=== PATIENT | female | born 1990 | race Caucasian/White ===

== ENCOUNTER 2020-04-25 14:10 | Emergency (ER) | payer MEDICAID, SELFPAY ==
--- NOTE | ~2020-04-25 | XR_ITS ---
EXAMINATION: XR CHEST CLINICAL INFORMATION: High fever COMPARISON: CT abdomen and pelvis 10/17/2016 TECHNIQUE: Frontal view of the chest was obtained. FINDINGS: No significant abnormality is noted involving the heart, lungs, mediastinum, bony thorax or soft tissues. XR/XR chest 1V IMPRESSION: Unremarkable examination.
[2020-04-25 14:16] VITALS: BP 116/77; PULSE 145; RESP 20; TEMP 36.6; O2SAT 96; BMI 25.0
[2020-04-25 14:40] VITALS: TEMP 37.3
--- NOTE | 2020-04-25 14:45 | ED_ITS ---
HPI - General Adult General Chief complaint: Fever Stated complaint: FEVER Time Seen by Provider: 04/25/20 14:14 Source: patient Mode of arrival: ambulatory Limitations: no limitations History of Present Illness HPI narrative: Patient no significant past medical history with complaining of high-grade fever since yesterday body aches no sore throat no running nose no contact with COVID-19 no urinary complaints no cough no shortness of breath Onset (ago): day(s) (1) Related Data Previous Rx's Medication Instructions Recorded levofloxacin 500 mg PO DAILY 7 Days #7 tab 04/25/20 Allergies Allergy/AdvReac Type Severity Reaction Status Date / Time No Known Allergies Allergy Unverified 12/04/19 17:28 [No Known Allergies*] Review of Systems Review of Systems: Constitutional : No Weight loss, ++Fever, No Chills ENT/Mouth : No sore throat, No Rhinorrhea Eyes: No Eye Pain, No Swelling Cardiovascular : No Chest Pain, no palpitations Respiratory : No Cough, No Sputum, no shortness of breath Gastrointestinal : no Nausea, No Vomiting, No Diarrhea, No abdominal Pain, no black stools Genitourinary : No Dysuria, No Urinary Frequency Musculoskeletal : No joint pain, ++ Myalgias, No Joint Swelling Skin : No Skin Lesions, No rash Neuro : No Weakness, No Numbness, No Dizziness, No Headache Psych : No Anxiety/Panic, No Depression Heme/Lymph: No Bruising, No Lymphadenopathy Endocrine : No Polyuria, No Polydipsia All other systems reviewed and are negative PMFSH Past Medical History Medical History No known health problems Social History Social History Advance Directives: No Advance Directives Information Provided: No Physical Exam Vital Signs: Vital Signs: Last Vital Signs Temp 99.0 F 04/25/20 16:28 Pulse 100 04/25/20 16:28 Resp 20 04/25/20 16:28 BP 116/77 04/25/20 14:16 Pulse Ox 99 04/25/20 16:28 Body Mass Index 25.0 Appearance: Alert. Oriented X3. No acute distress. Eyes: Pupils equal, round and reactive to light. ENT: Pharynx normal. Neck: Normal inspection. Neck supple. CVS: Tachycardia, no murmur Respiratory: No respiratory distress. Breath sounds normal. Abdomen: Soft and nontender. Bowel sounds are present, no mass palpable, no CVA tenderness Skin: Skin warm and dry. Normal skin color. Normal skin turgor. Extremities: No lower extremity edema. Neuro: Oriented X 3. No motor deficit. No sensory deficit. Medical Decision Making MDM Narrative Medical decision making narrative: Patient with high fever with chills now complaining of strong odor in the urine urine showed infection COVID is negative chest x-ray negative will start her on Levaquin patient denies any nausea/vomiting no significant back pain Lab Data Lab results reviewed: Yes I reviewed the patient's lab results. Labs: Lab Results 04/25/20 04/25/20 Range/Units 15:01 15:32 Urine Color YELLOW Urine Appearance CLOUDY Urine pH 6.0 (5.0-8.0) Ur Specific [place] 1.020 (1.005-1.025) Urine Protein 2+ H (NEG-TRACE) MG/DL Urine Glucose (UA) NEG (NEG) MG/DL Urine Ketones 40 (NEG) MG/DL Urine Blood 3+ H (NEG) Urine Nitrite POS H (NEG) Ur Leukocyte Esterase 2+ H (NEG) Urine RBC 30-49 H (0) /HPF Urine WBC TNTC H (0-4) /HPF Ur Squamous Epith Cells 2+ /LPF Urine Bacteria 1+ /LPF Urine Test NEGATIVE (NEGATIVE) COVID-19 (BIGG) Negative (Negative) COVID-19 Clin Com See Note Discharge Plan Discharge Clinical Impression: UTI (urinary tract infection) Qualifiers: Urinary tract infection type: acute cystitis Hematuria presence: without hematuria Qualified Code(s): N30.00 - Acute cystitis without hematuria Patient Disposition: Home, Self-Care Instructions: Urinary Tract Infection in Women (ED) Additional Instructions: Drink plenty of fluids take antibiotics as prescribed. Tylenol/Motrin for fever Report to the ER if high-grade fever/vomiting/increased abdominal pain Prescriptions: New levofloxacin 500 mg tablet 500 mg PO DAILY 7 Days Qty: 7 RF: 0
[2020-04-25] MEDS: Acetaminophen 325 MG TABLET 650 MG PO (14:58)
[2020-04-25 15:24] LABS: COVID-19 Test Negative (Negative)
[2020-04-25 16:12] LABS: Glucose Urine UA NEG (NEG); Leukocyte Esterase Urine 2+ (NEG); Nitrite Urine POS (NEG); UACC Culture Trigger YES; Urine Blood 3+ (NEG); Urine Ketones 40 MG/DL (NEG); Urine Protein 2+ MG/DL (NEG-TRACE)
[2020-04-25 16:13] LABS: Appearance Urine CLOUDY; Color Urine YELLOW
[2020-04-25 16:20] LABS: Bacteria Urine 1+ /LPF; RBC Urine 30-49 /HPF (0); Squamous Epithelial Cell Urine 2+ /LPF; WBC Urine TNTC /HPF (0-4)
[2020-04-25 16:28] VITALS: PULSE 100; RESP 20; TEMP 37.2; O2SAT 99
[2020-04-25 16:36] LABS: UPreg QC Valid YES; Urine Pregnancy NEGATIVE (NEGATIVE)
[2020-04-25] MEDS: levoFLOXacin 500 MG TABLET PO (16:50)
== END 2020-04-25 18:23 | disposition home or self-care (01) ==
PROVIDERS: Emergency Provider Internal Medicine
DX: N30.00 Acute cystitis without hematuria (principal); Z20.822 Contact with and (suspected) exposure to COVID-19; R50.9 Fever, unspecified
CPT/HCPCS: 36415; 71045; 81001; 81003; 81025; 87086; 87088; 87186; 87635; 99283; 99284

== ENCOUNTER 2020-04-28 15:53 | Outpatient (REF) | payer MEDICAID, SELFPAY ==
--- NOTE | ~2020-04-28 | CT_ITS ---
EXAMINATION: CT ABDOMEN AND PELVIS WITHOUT CONTRAST CLINICAL INFORMATION: Hematuria and acute onset right flank pain. COMPARISON: CT abdomen and pelvis 10/17/2016. TECHNIQUE: Multidetector volumetric imaging was performed from the superior aspect of the liver through the pubic symphysis. Sagittal and coronal reformatted images were obtained on the technologist's workstation. This CT examination was performed using dose optimization techniques as appropriate, variously including the following: *Automated exposure control. *Adjustment of mA and/or kV according to patient size (this includes techniques or standardized protocols for targeted exams where dose is matched to indication/reason for exam; i.e. extremities or head). *Use of iterative reconstruction technique. DLP: 341 mGy-cm FINDINGS: LUNG BASES: The visualized lung bases are unremarkable. LIVER, GALLBLADDER, AND BILIARY TREE: The liver is normal in size, shape, and attenuation. No focal hepatic lesion or biliary ductal dilatation is present. The gallbladder is unremarkable with no evidence of radiopaque gallstones, gallbladder wall thickening, or obvious pericholecystic inflammatory changes. PANCREAS: Unremarkable. SPLEEN: Unremarkable. ADRENAL GLANDS: Unremarkable. KIDNEYS AND URETERS: The kidneys are normal in size, shape, and attenuation. A single tiny punctate renal calculus is present on each side with one larger 4 mm non-obstructing calculus in the left lower pole. The collecting system on the right is mildly full when compared to the left renal collecting system. The proximal right ureter appears slightly more dilated than the left but no radiopaque ureteral calculus is seen. Perhaps a tiny punctate stone had passed. At the time of the patient's prior study, 2 punctate stones were seen in the right kidney with only one seen on today's study. BLADDER: Unremarkable. GASTROINTESTINAL TRACT: The small and large bowel are unremarkable. The appendix is unremarkable. ABDOMINAL WALL: No significant hernia is appreciated. LYMPH NODES: Normal. VASCULAR: Unremarkable. PELVIC VISCERA: Unremarkable. OSSEOUS STRUCTURES: Unremarkable. CT/CT abdomen pelvis wo con IMPRESSION: Bilateral non-obstructing renal calculi. There is some mild fullness of the collecting system on the right. Previously, 2 calculi were noted in the right kidney whereas on today's study only one is seen. Perhaps the patient passed a right kidney stone which is no longer seen.
== END 2020-04-28 15:54 | disposition home or self-care (01) ==
LOC: HO.CT 15:53
PROVIDERS: PCP Internal Medicine Geriatric Medicine; Visit Provider Nurse Practitioner
DX: R10.9 Unspecified abdominal pain (principal)
CPT/HCPCS: 74176

== ENCOUNTER 2020-10-15 11:04 | Emergency (ER) | payer MEDICAID, SELFPAY | END 2020-10-15 11:20 | disposition left against medical advice (07) | PROVIDERS: Emergency Provider Emergency Medicine; PCP Internal Medicine Geriatric Medicine | DX: R79.89 Other specified abnormal findings of blood chemistry (principal) ==

== ENCOUNTER 2024-09-27 07:31 | Outpatient (REF) | payer MEDICAID, SELFPAY ==
--- OUTSIDE RECORDS SUMMARY | 2024-09-27 07:37 | XMS_ITS | Encounter Summary ---
Author Organization [employer] Address [address] [place] [address] Care Team Providers Care Endless Bed Drum Sander Name Role Phone Ivy Lopez DO Primary Care Provider + [phone] Reason for Visit * Reason Onset Date Comments Chart Prep 09/22/2024 Encounter Details Date Type Department Care Team (Late st Contact Info) Description 09/22/2024 Telephone [facility] [address] [place] [address] Ivy Lopez DO [address] [place] [address] Chart Prep Social History Tobacco Use Types Packs/Day Years Used Date Smoking Tobacco: Former Cigarettes Smokeless Tobacco: Never Comments Unknown Sex and Gender Information Value Date Recorded Sex Assigned at Female 01/16/2022 10:19 AM EDT Legal Sex Female 10:19 AM EDT Gender Identity Female 01/16/2022 10:19 AM EDT Sexual Orientation Choose not to disclose 2021 10:19 AM EDT documented as of this encounter Miscellaneous Notes * Telephone Encounter - Ele Santoro MA - 09/22/2024 8:51 AM EDT Chart Prep Labs: not applicable Images: not applicable Referrals: appointment pending Vaccines due: Covid, Hep B, and HPV Screenings: pap smear and LMP Overdue care gaps: SBIRT, SDOH, PHQ-9, LATESHA-7, Oral health screening, Disability screen, and Tobacco documented in this encounter Plan of Treatment Not on file documented as of this encounter Visit Diagnoses Not on filedocumented in this encounter Care Teams Endless Bed Drum Sander Relationship Specialty Start Date End Date Ivy Lopez DO [address] [place] [id number] PCP - General Family Medicine 07/08/24 documented as of this encounter
--- OUTSIDE RECORDS SUMMARY | 2024-09-27 07:37 | XMS_ITS | Clinical Summary ---
Author Organization [employer] [facility] ity Address [address] [place] [address] Care Team Providers Care Cage Unloader Name Role Phone Unavailable Primary Care Provider Unavailabl e Social History Tobacco Use Types Packs/Day Years Used Date Smoking Tobacco: Never Assessed Comments Unknown Sex and Gender Information Value Date Recorded Sex Assigned at Not on file Legal Sex Female 4:57 AM EST Gender Identity Not on file Sexual Orientation Not on file Plan of Treatment Health Maintenance Due Date Last Done Comments DTaP,Tdap,and Td Vaccines (1 - Tdap) 09/20/2011 Hepatitis B Vaccines (1 of 3 - 19+ 3-dose series) 09/20/2011 Cervical Cancer Screening: P ap Smear 2013 COVID-19 Vaccine ( - 2023-2 5 season) 2023 Influenza Vaccine (#1) 2024 HIB Vaccines Aged Out No longer eligi ble based on patient's age to complete this topic HPV Vaccines Aged Out No longer eligi ble based on patient's age to complete this topic Hepatitis A Vaccines Aged Out No long er eligible based on patient's age to complete this topic IPV Vaccines Aged Out No longer eligi ble based on patient's age to complete this topic MMR Vaccines Aged Out No longer eligi ble based on patient's age to complete this topic Meningococcal ACWY Vaccine Aged Out N o longer eligible based on patient's age to complete this topic Meningococcal B Vaccine Aged Out No l onger eligible based on patient's age to complete this topic Pneumococcal Vaccine: Pediat rics (0 to 5 Years) and At-Risk Patients (6 to 49 Years) Aged Out No longer eligible b ased on patient's age to complete this topic RSV Immunization Patients Un la nena 20 months Aged Out No longer eligible b ased on patient's age to complete this topic Varicella Vaccines Aged Out No longer eligible based on patient's age to complete this topic
[2024-09-27 08:07] LABS: Hematocrit 35.7 % (37.0-47.0); Hemoglobin 11.6 g/dl (12.0-16.0); Mean Corpuscular HGB Conc 32.5 g/dl (31.0-35.0); Mean Corpuscular Hemoglobin 28.4 pg (27.0-33.0); Mean Corpuscular Volume 87.3 fL (80.0-98.0); NRBC Abs Auto 0.000 X10*3/uL (0.0-0.012); NRBC Pct Auto 0.0 /100WBC (0.0-0.2); Platelet Count 381 X10*3/uL (160-400); Red Blood Count 4.09 X10*6/uL (4.20-5.50); White Blood Count 8.6 X10*3/uL (4.8-10.8)
[2024-09-27 08:14] LABS: Hemoglobin A1C 97.9106 umol/L; Total Hemoglobin (HGBA1C) 2947.9735 umol/L
[2024-09-27 08:38] LABS: Alanine Aminotransferase 25 U/L (0-31); Albumin Level 4.5 g/dL (3.5-5.0); Alkaline Phosphatase 69 U/L (39-117); Anion Gap 10 (12-20); Aspartate Amino Transferase 23 U/L (5-31); Blood Urea Nitrogen 14 mg/dL (9-16); Calcium 9.5 mg/dL (8.4-10.2); Carbon Dioxide 24 mmol/L (22-29); Chloride 110 mmol/L (96-108); Cholesterol 208 mg/dL (<200); Estimated Glomerular Filt Rate > 60; HDL Cholesterol 52 mg/dL (>40); Potassium 3.9 mmol/L (3.3-5.1); Sodium 140 mmol/L (135-145); Total Protein 8.1 g/dL (6.5-8.0); Triglycerides 105 mg/dL (<150)
[2024-09-27 09:12] LABS: HBS Num1 1.16 mIU/mL (0-7.99); HBc Num1 0.09 S/CO (0.00-0.79); HBsAGNum1 0.41 S/CO (0.00-0.99); HIV Num 1 0.05 S/CO (0.00-0.99); Hepatitis B Surface Antigen Negative (Negative); ~HepC Num1 0.18 S/CO (0.00-0.79); ~Hepatitis B Surface Antibody NONREACTIVE (Nonreactive); ~Hepatitis C Antibody Nonreactive (Nonreactive)
[2024-09-27 09:14] LABS: Free T4 (Free Thyroxine) 0.97 ng/dL (0.71-1.85); Thyroid Stimulating Hormone 1.70 uIU/mL (0.32-4.0)
[2024-10-01 09:22] LABS: Rubeola IgG (Measles) 15.00 AU/mL
[2024-10-03 04:10] LABS: ~Hepatitis A Antibody IgG 0.37 S/CO (0.00-0.99)
== END 2024-09-27 07:32 | disposition home or self-care (01) ==
LOC: HO.LAB 07:31
PROVIDERS: PCP Family Medicine; Visit Provider Family Medicine
DX: Z00.00 Encounter for general adult medical examination without abnormal findings (principal); E28.2 Polycystic ovarian syndrome; L30.1 Dyshidrosis [pompholyx]; Z87.442 Personal history of urinary calculi; R00.2 Palpitations; Z68.28 Body mass index [BMI] 28.0-28.9, adult
CPT/HCPCS: 36415; 80048; 80061; 80076; 82306; 83036; 84439; 84443; 85027; 86592; 86704; 86706; 86708; 86735; 86762; 86765; 86787; 86803; 87340; 87389

== ENCOUNTER 2024-09-29 10:37 | Outpatient (REF) | payer MEDICAID, SELFPAY ==
--- OUTSIDE RECORDS SUMMARY | 2024-09-29 11:28 | XMS_ITS | Encounter Summary ---
Author Organization [employer] Address [address] [place] [address] Care Team Providers Care Beach Expert Name Role Phone Ivy oLpez DO Primary Care Provider + [phone] Encounter Details Date Type Department Care Team (Latest Contact Info) Description 09/26/2024 Travel Social History Tobacco Use Types Packs/Day Years Used Date Smoking Tobacco: Former Cigarettes Smokeless Tobacco: Never Depression Answer Date Recorded Patient Health Questionnaire-9 Score 0 09/26/2024 Patient Health Questionnaire-9 Score 0 09/26/2024 Last PHQ-9: Questionnaire Data Not on file 0 09/26/2024 Housing Stability Answer Date Recorded What is your housing situation today? I have xena jesse 09/26/[address] you li ve. Do you have problems with any of the following? None of the above 09/26/2024 Food Insecurity Answer Date Recorded Within the past 12 months, y ou worried that your food would run out before you got money to buy more: Never True 09/26/2024 Within the past 12 months,th e food you bought just didn't last and you didn't have enough money to get more: Never True 01/2025 Transportation Answer Date Recorded In the past 12 months, has l ack of transportation kept you from medical appts, meetings, work or from getting things needed for daily living? No 09/26/2024 Utilities Answer Date Recorded In the past 12 months, has t he electric, gas, oil or water company threatened to shut off services in your home? No 09/26/2024 Depression Answer Date Recorded Patient Health Questionnaire-2 Score 0 09/26/2024 Internet Access Answer Date Recorded Internet Access Q1 Yes 09/26/2024 Internet Access Q2 Not on file 09/26/2024 Comments No Sex and Gender Information Value Date Recorded Sex Assigned at Female 01/16/2022 10:19 AM EDT Legal Sex Female 10:19 AM EDT Gender Identity Female 01/16/2022 10:19 AM EDT Sexual Orientation Choose not to disclose 2021 10:19 AM EDT documented as of this encounter Functional Status * Over the past 2 weeks, how often have you been bothered by any of the following problems? Question Answer Date of Assessment Author Patient Health Questionnaire-2 Score 0 09/26/2024 10:20 AM EDT Nimo Salinas MA * Little interest or pleasure in doing things Answer Date of Assessment Author Not at all 09/26/2024 10:20 AM EDT Nimo Quezada MA * Feeling down, depressed, or hopeless Answer Date of Assessment Author Not at all 09/26/2024 10:20 AM EDT Nimo Quezada MA * Trouble falling or staying asleep, or sleeping too much Answer Date of Assessment Author Not at all 09/26/2024 10:20 AM EDT Nimo Quezada MA * Feeling tired or having little energy Answer Date of Assessment Author Not at all 09/26/2024 10:20 AM EDT Nimo Quezada MA * Poor appetite or overeating Answer Date of Assessment Author Not at all 09/26/2024 10:20 AM EDT Nimo Quezada MA * Feeling bad about yourself - or that you are a failure or have let yourself or your family down Answer Date of Assessment Author Not at all 09/26/2024 10:20 AM EDT Nimo Quezada MA * Trouble concentrating on things, such as reading the newspaper or watching television Answer Date of Assessment Author Not at all 09/26/2024 10:20 AM EDT Nimo Quezada MA * Moving or speaking so slowly that other people could have noticed? Or the opposite - being so fidgety or restless that you have been moving around a lot more than usual. Answer Date of Assessment Author Not at all 09/26/2024 10:20 AM EDT Nimo Quezada MA * Thoughts that you would be better off or hurting yourself in some way Answer Date of Assessment Author Not at all 09/26/2024 10:20 AM EDT Nimo Quezada MA * Patient Health Questionnaire-9 Score Answer Date of Assessment Author 0 09/26/2024 10:20 AM EDT Nimo Quezada MA * Over the last 2 weeks, how often have you been bothered by any of the following problems? Question Answer Date of Assessment Author Feeling nervous, anxious, or on edge 1 09/26/2024 10:20 AM EDT Nimo Toledo MA Not being able to stop or control worrying 0 09/26/2024 10:20 AM EDT Nimo Toledo MA Worrying too much about different things 0 09/26/2024 10:20 AM EDT Nimo Toledo MA Trouble relaxing 0 09/26/2024 10:20 AM EDT Nimo Toledo MA Being so restless that it is hard to sit still 0 09/26/2024 10:20 AM EDT Nimo Toledo MA Becoming easily annoyed or irritable 0 09/26/2024 10:20 AM EDT Nimo Toledo MA Feeling afraid as if something awful might happen 0 09/26/2024 10:20 AM EDT Nimo Antunez MA LATESHA-7 Total Score 1 09/26/2024 10:20 AM EDT Nimo Toledo MA documented as of this encounter Plan of Treatment Not on file documented as of this encounter Visit Diagnoses Not on filedocumented in this encounter Additional Health Concerns Assessment Noted Time PHQ-9 Depression Total Score: 0 09/27/19 25 10:20 AM EDT documented as of this encounter Care Teams Beach Expert Relationship Specialty Start Date End Date Ivy Lopez DO [address] [place] [id number] PCP - General Family Medicine 07/08/24 documented as of this encounter
--- OUTSIDE RECORDS SUMMARY | 2024-09-29 11:28 | XMS_ITS | Clinical Summary ---
Author Organization [employer] [facility] ity Address [address] [place] [address] Care Team Providers Care Commission Specialist Name Role Phone Unavailable Primary Care Provider [...]
[2024-10-02 06:53] LABS: TS Negative Control Passed; TS Panel A 0; TS Panel B 0; TS Positive Control Passed; TSpotTB Negative (Negative)
== END 2024-09-29 10:38 | disposition home or self-care (01) ==
LOC: HO.LAB 10:37
PROVIDERS: PCP Family Medicine; Visit Provider Family Medicine
DX: Z00.00 Encounter for general adult medical examination without abnormal findings (principal); E28.2 Polycystic ovarian syndrome; L30.1 Dyshidrosis [pompholyx]; Z87.442 Personal history of urinary calculi; R00.2 Palpitations; Z68.28 Body mass index [BMI] 28.0-28.9, adult
CPT/HCPCS: 36415; 86481

== ENCOUNTER → 2024-10-31 08:50 | Outpatient (REF) | payer MEDICAID, SELFPAY ==
--- NOTE | 2024-10-31 08:58 | HM_ITS ---
* Total monitoring time 2 days. * Underlying rhythm is sinus with an average rate of 82/Min. * No significant supraventricular or ventricular ectopy. * No sustained arrhythmias. * No significant pauses or high-grade AV blocks. * No patient markers or diary events. MTDD
--- NOTE | 2024-10-31 09:00 | CA_ITS ---
Transthoracic Echocardiogram Patient (Last, First, Middle): Ani Quintanilla Imalay Gender: Female Date of : 1990 Age: 34 Procedure Date: 10/31/2024 Procedure Type: Transthoracic Echocardiogram Location: OP Height: 165.1 cm Weight: 78.47 kg BSA: 1.86 m2 Heart Rate: 72 bpm BP: 112 / 72 mmHg Toppiece Chopper: TO Referring MD: Ivy Lopez DO Symptoms: PALPITATIONS Study Quality: Adequate ECG Rhythm: Sinus Conclusions: - Normal left ventricular size, thickness, systolic function, and wall motion. The visually estimated ejection fraction is between 55-60%. Diastolic function is normal for age. - Normal right ventricular cavity size and systolic function. Findings Left Ventricle Normal left ventricular size, thickness, systolic function, and wall motion. The visually estimated ejection fraction is between 55-60%. Diastolic function is normal for age. Right Ventricle Normal right ventricular cavity size and systolic function. Atria The left atrium is normal in size. There is no evidence of interatrial shunt by color Doppler. The right atrium is normal in size. Aortic Valve Normal aortic valve structure and function. There is no aortic valve stenosis. There is no aortic valve regurgitation. Mitral Valve Normal mitral valve structure and function. There is no mitral valve regurgitation. There is no mitral valve stenosis. Pulmonic Valve The pulmonic valve is normal. There is no pulmonic valve regurgitation. Tricuspid Valve Normal tricuspid valve structure. There is no tricuspid valve regurgitation. Tricuspid regurgitation envelope is inadequate for calculation of right ventricular systolic pressure. Normal right atrial pressure. Great Vessels All visible segments of the aorta are normal in size. The visualized portions of the pulmonary artery and branches are normal. Venous The inferior vena cava is normal in size and collapses greater than 50% with inspiration. Pericardium/Pleural There is no evidence of pericardial effusion. Prior Study Comparison No prior study available for comparison. Measurements 2D Linear Measurements IVSd: 0.76 0.6-0.9/0.6-1.0 cm LVIDd: 4.70 3.9-5.3/4.2-5.9 cm LVIDd Index: 2.53 2.4-3.2/2.2-3.1 cm/m2 LVIDs: 2.83 2.0-3.6 cm LVPWd: 0.60 0.7-1.1 cm LA Diam: 3.30 2.7-3.8/3.0-4.0 cm LAIDs Index: 1.77 1.5-2.3 cm/m2 LV Mass: 123.81 67-162/88-224 g LV Mass Index: 66.57 43-95/49-115 g/m2 LVOT Diam: 2.00 3.0+(-)1.3 cm 2D Systolic Function EF 4C: 61.50 >55% EF 2C: 60.80 >55% EF BiP: 61.10 >55% Mitral Valve MV Pk E: 0.57 MV PK A: 0.51 MV Decel Time: 188.00 E/A: 1.10 E'Lateral: 9.03 E'Medial: 8.05 E/E' Med: 7.00 E/E' Lat: 6.30 PHT: 55.00 MVA PHT: 4.00 Decel [place]: 3.01 Aortic Valve AoV Pk Fernando: 1.41 AoV Mn Fernando: 0.97 AoV VTI: 0.28 AoV Pk Grad: 8.00 Aov Mn Grad: 4.00 [place] Cont.VTI: 2.66 LVOT LVOT Pk Fernando: 1.20 LVOT Mn Fernando: 0.88 LVOT VTI: 0.24 LVOT Pk Grad: 6.00 LVOT Mn Grad: 3.00 LVOT Diam: 2.00 LVOT Area: 3.14 Diastolic Function MV Pk E: 0.57 MV Pk A: 0.51 E/A: 1.10 E'Medial: 8.05 E/E' Med: 7.00 E' Laterial: 9.03 E/E' Lat: 6.30 Right Ventricle TAPSE (mm): 20.80 TVS' Fernando: 13.50 Tricuspid Valve RA Press: 3.00 Great Vessels Aorta Sinus of Valsalva: 3.06 2.0-3.5 cm Ao Asc: 2.70 2.1-3.4 cm Updated in Other Vendor System with Status of Final Shahzad Noriega MD electronically signed on 11/02/2024 1:58:47 PM with status of Final
--- OUTSIDE RECORDS SUMMARY | 2024-10-31 09:07 | XMS_ITS | Clinical Summary ---
Author Organization [facility] ity Address [address] [place] [address] Care Team Providers Care Supervisor Type Bar And Segment Name Role Phone Unavailable Primary Care Provider [...] Vaccine ( - 2023-2 5 season) 2023 Depression Screening 03/19/2024 Influenza Vaccine (#1) 2024 HIB Vaccines Aged [...]
--- OUTSIDE RECORDS SUMMARY | 2024-10-31 09:07 | XMS_ITS | Clinical Summary ---
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 Do not crush, chew, or split. 60 tablet 3 5 09/27/19 26 Active cholecalciferol (Vitamin D-3) 50 MCG (1999 UT) capsule Take 1 capsule (50 mcg) by mouth Once per day. 90 capsule 3 5 Active Active Problems Problem Noted Date Diagnosed Date BMI 28.0-28.9,adult 09/26/2024 Dyshidrotic eczema 09/08/2024 PCOS (polycystic ovarian syndrome) 05/29/2024 History of nephrolithiasis 05/29/2024 Encounters Date Type Department Care Team Description 10/07/2024 Telephone [facility] [address] [place] [phone] Ivy Lopez DO 09/26/2024 10:30 AM EDT Office Visit [facility] [address] [place] [phone] Ivy Lopez DO Routine history and physical examination of adult (Primary Dx); PCOS (polycystic ovarian syndrome); Dermatitis; History of nephrolithiasis; Palpitations; Diminished night vision; BMI 28.0-28.9,adult 09/26/2024 Travel 09/22/2024 Telephone [facility] [address] [place] [address] Ivy Lopez DO Chart Prep 09/17/2024 Patient Outreach [facility] [address] [place] [address] Ivy Lopez, Pre-visit Planning ((Unable to reach for PVP screening, LVM) to be completed in office ) 09/08/2024 3:40 PM EDT Office Visit [facility] [address] [place] [address] Name, MD Darin Dyshidrotic eczema (Primary Dx) from Last 3 Months Immunizations Immunization Administration Dates Next Due Influenza injectable quadriv alent IIV4 with preservative 12/06/2016 Pfizer Covid-19 Vaccine 12+ 10/25/2020, Tdap 12/06/2016 Family History Medical History Relation Name Comments Hypertension Father Heart disease Father's Sister Diabetes Maternal Grandmother Diabetes Mother Hypertension Mother Diabetes Paternal Grandmother Relation Name Status Comments Father Father's Sister Maternal Grandmother Mother Paternal Grandmother Social History Tobacco Use Types Packs/Day Years Used Date Smoking Tobacco: Former Cigarettes Smokeless Tobacco: Never Tobacco Cessation:Counseling Given: Not Answered Depression Answer Date Recorded Patient Health Questionnaire-9 Score 0 09/26/2024 Patient Health Questionnaire-9 Score 0 09/26/2024 Last PHQ-9: Questionnaire Data Not on file 0 09/26/2024 Housing Stability Answer Date Recorded What is your housing situation today? I have xena molina 09/26/[address] you li [...] not to disclose 2021 10:19 AM EDT Last Filed Vital Signs Vital Sign Reading Time Taken Comments Blood Pressure 120/80 09/26/2024 10:13 AM EDT Pulse 86 09/26/2024 10:13 AM EDT Temperature 36.6 C (97.9 F) 09/26/2024 10:13 AM EDT Respiratory Rate 18 09/26/2024 10:13 AM EDT Oxygen Saturation 98% 09/08/2024 2:40 PM EDT Inhaled Oxygen Concentration - - Weight 78.7 kg (173 lb 6.4 oz) 09/26/2024 10:13 AM EDT Height 165.1 cm (5' 5 ) 09/26/2024 10:13 AM EDT Body Mass Index 28.86 09/26/2024 10:13 AM EDT Plan of Treatment Upcoming Encounters Date Type Department Care Team (Late st Contact Info) Description 01/09/2025 10:30 AM EDT Office Visit [facility] [address] [place] [address] Kelsi Ruiz, OD [address] [place] [phone] Health Maintenance Due Date Last Done Comments Family Planning (PISQ) 09/20/2007 HPV Vaccines (1 - 3-dose series) 09/20/2007 Hepatitis B Vaccines (1 of 3 - 19+ 3-dose series) 09/20/2011 Cervical Cancer Screening 02/24/2023 HPV/Cotest 02/24/2023 Pap Smear 02/24/2023 02/25/2020 COVID-19 Vaccine (3 - 2023-2 5 season) 2023 10/25/2020, 10/04/2020 Influenza Vaccine (#1) 2024 12/06/2016 Alcohol/Substance Use Screening 09/26/2025 09/26/2024 Depression Screening 09/26/2025 09/26/2024, 09/26/2024 Disability Screening 09/26/2025 09/26/2024 SDOH Screening 09/26/2025 09/26/2024 Tobacco Screening 09/30/2025 09/30/2024 DTaP/Tdap/Td Vaccines (2 - T d or Tdap) 12/06/2026 12/06/2016 Zoster Vaccines (1 of 2) 2042 RSV Patients and Patients Aged 60 years or older (1 - 1-dose 75+ series) 09/20/2067 HIV Screening Completed 09/27/2024, 04/28/2020 Hepatitis C Screening Completed 09/27/2024 , 04/28/2020 HIB Vaccines Aged Out No longer eligi [...] patient's age to complete this topic Meningococcal Vaccine Aged Out No blaire loren eligible based on patient's age to complete this topic Pneumococcal Vaccine: Pediatrics (0 to 5 Years) and At-Risk Patients (6 to 49) Years Aged Out No longer eligible b ased on patient's age to complete this topic RSV under 20 months Aged Out No longe r eligible based on patient's age to complete this topic Rotavirus Vaccines Aged Out No longer eligible based on patient's age to complete this topic Procedures Procedure Name Priority Date/Time Associated Diagnosis Comments T-SPOT(R).TB Routine 09/29/2024 10:47 AM EDT Routine history and physical examination of adult PCOS (polycystic ovarian syndrome) Dermatitis History of nephrolithiasis Palpitations BMI 28.0-28.9,adult MEASLES, MUMPS, AND RUBELLA (MMR) AB (IGG) PANEL, IMMUNE STATUS Routine 09/27/2024 7:59 AM EDT Routine history and physical examination of adult VARICELLA ZOSTER ANTIBODY, IGG Routine 09/27/2024 7:59 AM EDT Routine history and physical examination of adult HEPATITIS A ANTIBODY, TOTAL Routine 09/27/2024 7:59 AM EDT Routine history and physical examination of adult PCOS (polycystic ovarian syndrome) Dermatitis History of nephrolithiasis Palpitations BMI 28.0-28.9,adult HEPATITIS B CORE AB TOTAL Routine 09/27/2024 7:59 AM EDT Routine history and physical examination of adult PCOS (polycystic ovarian syndrome) Dermatitis History of nephrolithiasis Palpitations BMI 28.0-28.9,adult HEPATITIS B SURFACE ANTIBODY, QUALITATIVE Routine 09/27/2024 7:59 AM EDT Routine history and physical examination of adult PCOS (polycystic ovarian syndrome) Dermatitis History of nephrolithiasis Palpitations BMI 28.0-28.9,adult RPR (MONITOR) W/REFL TITER Routine 09/27/2024 7:59 AM EDT Routine history and physical examination of adult PCOS (polycystic ovarian syndrome) Dermatitis History of nephrolithiasis Palpitations BMI 28.0-28.9,adult HEPATITIS C AB W/REFL TO HCV RNA, QN, PCR Routine 09/27/2024 7:59 AM EDT Routine history and physical examination of adult PCOS (polycystic ovarian syndrome) Dermatitis History of nephrolithiasis Palpitations BMI 28.0-28.9,adult HIV 1/2 ANTIGEN/ANTIBODY, FOURTH GENERATION W/RFL Routine 09/27/2024 7:59 AM EDT Routine history and physical examination of adult PCOS (polycystic ovarian syndrome) Dermatitis History of nephrolithiasis Palpitations BMI 28.0-28.9,adult HEPATITIS B SURFACE ANTIGEN, EIA Routine 09/27/2024 7:59 AM EDT Routine history and physical examination of adult PCOS (polycystic ovarian syndrome) Dermatitis History of nephrolithiasis Palpitations BMI 28.0-28.9,adult BASIC METABOLIC PANEL Routine 09/27/2024 7:59 AM EDT Routine history and physical examination of adult PCOS (polycystic ovarian syndrome) Dermatitis History of nephrolithiasis Palpitations BMI 28.0-28.9,adult CBC Routine 09/27/2024 7:59 AM EDT Routine history and physical examination of adult PCOS (polycystic ovarian syndrome) Dermatitis History of nephrolithiasis Palpitations BMI 28.0-28.9,adult HEMOGLOBIN A1C Routine 09/27/2024 7:59 AM EDT Routine history and physical examination of adult PCOS (polycystic ovarian syndrome) Dermatitis History of nephrolithiasis Palpitations BMI 28.0-28.9,adult HEPATIC FUNCTION PANEL Routine 09/27/2024 7:59 AM EDT Routine history and physical examination of adult PCOS (polycystic ovarian syndrome) Dermatitis History of nephrolithiasis Palpitations BMI 28.0-28.9,adult VITAMIN D,25-OH,TOTAL,IA Routine 09/27/2024 7:59 AM EDT Routine history and physical examination of adult PCOS (polycystic ovarian syndrome) Dermatitis History of nephrolithiasis Palpitations BMI 28.0-28.9,adult TSH Routine 09/27/2024 7:59 AM EDT Routine history and physical examination of adult PCOS (polycystic ovarian syndrome) Dermatitis History of nephrolithiasis Palpitations BMI 28.0-28.9,adult LIPID PANEL, STANDARD Routine 09/27/2024 7:59 AM EDT Routine history and physical examination of adult PCOS (polycystic ovarian syndrome) Dermatitis History of nephrolithiasis Palpitations BMI 28.0-28.9,adult T4, FREE Routine 09/27/2024 7:59 AM EDT Routine history and physical examination of adult PCOS (polycystic ovarian syndrome) Dermatitis History of nephrolithiasis Palpitations BMI 28.0-28.9,adult THINPREP PAP Routine 02/25/2020 3:20 PM EST from Last 3 Months or Most Recently Relevant to Health Maintenance Results * T-SPOT??.TB (09/29/2024 10:47 AM EDT) Pathologist [facility] T Spot TB Negative Negative [facility] Comment:A negative test resu lt does not exclude the possibilityof exposure to or infection with Mycobacteriumtuberculosis (M. tuberculosis). Patients with recentexposure to TB infected individuals exhibiting anegative T-SPOT.TB result should be considered forretesting within 6 weeks or if other relevant clinicalsymptoms indicate. Results from T-SPOT.TB testing mustbe used in conjunction with each individual'sepidemiological history, current medical status,and results of other diagnostic evaluations.The T-SPOT.TB test is qualitative and results arereported as positive, borderline, or negative, giventhat the test controls perform as expected. In linewith the Centers for Disease Control and Prevention's2010 recommendation to report quantitative measurementsalongside the qualitative result, the laboratoryprovides spot counts for informational purposes only.The T-SPOT.TB test should not be interpreted as aquantitative test. TS PANEL A 0 [facility] TS PANEL B 0 [facility] Negative Control Passed [facility] Positive Control Passed [facility] Comment:For additional infor matgloria, please refer tohttp://education.[employer]/faq/AAC440(This link is being provided for informational/educational purposes only.)THIS TEST WAS PERFORMED AT:[employer] [id number] [place] [phone] HARTLEY MD,PHD 09/29/2024 10:4 7 AM EDT 09/29/2024 10:47 AM EDT us Ivy Lopez DO LAB BLOOD ORDERABLES Final R esult [facility] [address] [place] [phone] * (ABNORMAL) Vitamin D, 25-Hydroxy, Total, Immunoassay (09/27/2024 7:59 AM EDT) Vitamin D 25-OH Total 22.2(L) >30 ng/mL [facility] Comment: Health Based Reference Values*< 20 ng/mL Rtacytcmf32-69 ng/mL Insufficient> 30 ng/mL Sufficient*Yury WEINSTEIN. N Engl J Med. 2007;357:266-280There is no well-established upper level of normal vitamin Dlevels. Some laboratories use 50 ng/mL as an upper limit ofnormal. However, toxicity is patient-dependent and may occurat any level. Careful correlation with the patient'spresentation is necessary and, if there is concern forvitamin D toxicity, treatment should be consideredirrespective of the serum level.Care must be taken in interpreting Vitamin D results fromdifferent laboratories and methodologies. Published datademonstrated that results from patients undergoinghemodialysis may show a negative bias when tested withvarious automated 25-OH vitamin D assays when compared toLC-MS/MS.When testing samples from patients whose predominant form ofVitamin D is Vitamin D2, such as patients receiving VitaminD2 supplementation, results that are subtherapeutic shouldbe confirmed with another method such as LC-MS/MS. Blood Venous blood specimen / Unknown 09/27/2024 7:59 AM EDT 09/27/2024 7:59 AM EDT us Ivy Lopez DO LAB BLOOD ORDERABLES Final R esult [facility] [address] [place] [phone] * (ABNORMAL) Measles, Mumps, and Rubella (MMR) Antibodies??(IgG) Panel, Immune Status (09/27/2024 7:59 AM EDT) Pathologist [facility] Mumps Virus IgG Antibody <9.00(A) AU/mL [facility] Comment:AU/mL Interpretation ------- <9.00 Not consistent with immunity9.00-10.99 Equivocal>10.99 Consistent with immunityThe presence of mumps IgG antibody suggests immunizationor past or current infection with mumps virus. Rubella IgG Antibody <0.90(A) Index [facility] Comment:Index Interpretation ----- <0.90 Not consistent with immunity 0.90-0.99 Equivocal > or = 1.00 Consistent with immunityThe presence of rubella IgG antibody suggestsimmunization or past or current infection withrubella virus.THIS TEST WAS PERFORMED AT:D[facility] [place] [phone] GARCES MD Rubeola IgG (Measles) 15.00(A) AU/mL [facility] Comment:AU/mL Interpretation ----- <13.50 Not consistent with ulllpnko30.50-16.49 Equivocal>16.49 Consistent with immunityThe presence of measles IgG suggests immunization orpast or current infection with measles virus.For additional information, please refer tohttp://education.[employer]/faq/VAW803(This link is being provided for informational/educational purposes only.) Blood Venous blood specimen / Unknown 09/27/2024 7:59 AM EDT 09/27/2024 7:59 AM EDT Ivy Lopez DO LAB BLOOD ORDERABLES Final R esult [facility] [address] [place] [phone] * Hepatitis C Antibody with Reflex to HCV, RNA, Quantitative, Real-Time PCR (09/27/2024 7:59 AM EDT) Hepatitis C Antibody Nonreactive Nonreactive [facility] Comment:Antibodies to HCV no t detected; does not exclude early acuteHCV infection. Blood Venous blood specimen / Unknown 09/27/2024 7:59 AM EDT 09/27/2024 7:59 AM EDT Ivy Jurcsak DO LAB BLOOD ORDERABLES Final R esult Performing Organization Address City/[facility]/ZIP Co de Phone Number [facility] [address] [place] [phone] * Hepatitis A Antibody, Total (09/27/2024 7:59 AM EDT) Hepatitis A Antibody IgG Nonreactive Nonreactive [facility] Blood Venous blood specimen / Unknown 09/27/2024 7:59 AM EDT 09/27/2024 7:59 AM EDT us Ivy Lopez DO LAB BLOOD ORDERABLES Final R esult Performing Organization Address [facility] Co de Phone Number [facility] [address] [place] [phone] * Hepatitis B surface antigen, EIA (09/27/2024 7:59 AM EDT) Hepatitis B Surface Ag Negative Negative [facility] Blood Venous blood specimen / Unknown 09/27/2024 7:59 AM EDT 09/27/2024 7:59 AM EDT us Ivy Lopez DO LAB BLOOD ORDERABLES Final R esult Performing Organization Address [facility] Co de Phone Number [facility] [address] [place] [phone] * Hepatitis B Core Antibody, Total (09/27/2024 7:59 AM EDT) Hepatitis B Core Antibody Nonreactive Nonreactive [facility] Blood Venous blood specimen / Unknown 09/27/2024 7:59 AM EDT 09/27/2024 7:59 AM EDT us Ivy Lopez DO LAB BLOOD ORDERABLES Final R esult Performing Organization Address City/[facility]/ZIP Co de Phone Number [facility] [address] [place] [phone] * RPR (Monitor) with Reflex to??Titer (09/27/2024 7:59 AM EDT) RPR (Monitor) w/Refl Titer NON-REACTI VE NON-REACT ERNIE [facility] Comment:THIS TEST WAS PERFOR MED AT:D.[employer] [place] [phone] GARCES MD Rapid Plasma Reagin Ab Titer TNP [facility] Blood Venous blood specimen / Unknown 09/27/2024 7:59 AM EDT 09/27/2024 7:59 AM EDT us Ivy Lopez DO LAB BLOOD ORDERABLES Final R esult [facility] [address] [place] [phone] * HIV-1/2 Antigen and Antibodies, Fourth Generation, with Reflexes (09/27/2024 7:59 AM EDT) HIV AB/AG Nonreactive Nonreactive [facility] Comment:HIV-1 p24 Ag and/or HIV-1/HIV-2 Ab not detected.A test result that is nonreactive does not exclude thepossibility of exposure to or infection with HIV-1 and/orHIV-2. Nonreactive results in this assay for individualswith prior exposure to HIV-1 and/or HIV-2 may be due toantigen and antibody levels that are below the limit ofdetection of this assay.The [employer] HIV Ag/Ab Combo assay result andsupplemental assay results should be interpreted inconjunction with the patient's clinical presentation,history and other laboratory results. If the results areinconsistent with clinical evidence, additional testing issuggested to confirm the result. Blood Venous blood specimen / Unknown 09/27/2024 7:59 AM EDT 09/27/2024 7:59 AM EDT us Ivy Lopez DO LAB BLOOD ORDERABLES Final R esult Performing Organization Address City/[facility]/ZIP Co de Phone Number [facility] [address] [place] [phone] * Hepatitis B Surface Antibody, Qualitative (09/27/2024 7:59 AM EDT) [facility] ~Hepatitis B Surface Antibody NONREACTIVE Nonreactive [facility] Comment:Nonreactive: < 8.00 mIU/mL Blood Venous blood specimen / Unknown 09/27/2024 7:59 AM EDT 09/27/2024 7:59 AM EDT Ivy Jessica [employer] LAB BLOOD ORDERABLES Final R esult Performing Organization Address [facility]/ZIP Co de Phone Number [facility] [address] [place] [phone] * (ABNORMAL) CBC (09/27/2024 7:59 AM EDT) [facility] White Blood Count 8.6 4.8 - 10.8 X10*3/uL [facility] Red Blood Count 4.09(L) 4.20 - 5.50 X10*6/uL [facility] Hemoglobin 11.6(L) 12.0 - 16.0 g/dl [facility] Hematocrit 35.7(L) 37.0 - 47.0 % [facility] Mean Corpuscular Volume 87.3 80.0 - 98.0 fL [facility] Mean Corpuscular Hemoglobin 28.4 27.0 - 33.0 pg [facility] Mean Corpuscular HGB Conc 32.5 31.0 - 35.0 g/dl [facility] Red Cell Distribution Width 12.6 11.0 - 16.0 % [facility] Platelet Count 381 160 - 400 X10*3/uL [facility] Mean Platelet Volume 9.6 9.4 - 12.3 fL [facility] NRBC Pct Auto 0.0 0.0 - 0.2 /100WBC [facility] NRBC Abs Auto 0.000 0.0 - 0.012 X10*3/uL [facility] Blood Venous blood specimen / Unknown 09/27/2024 7:59 AM EDT 09/27/2024 7:59 AM EDT Ivy Lopez LAB BLOOD ORDERABLES Final R esult Performing Organization Address [facility] Co de Phone Number [facility] [address] [place] [phone] * (ABNORMAL) Varicella zoster antibody, IgG (09/27/2024 7:59 AM EDT) Varicella IgG Antibody <1.00(A) S/CO [facility] Comment:Signal to Cut-off S/ CO Interpretation --------- <1.00 Negative - Antibody not detected > or = 1.00 Positive - Antibody detected A positive result indicates that the patient has antibody to VZV but does not differentiate between an active or past infection. The clinical diagnosis must be interpreted in conjunction with the clinical signs and symptoms of the patient. This assay reliably measures immunity due to previous infection but may not be sensitive enough to detect antibodies induced by vaccination. Thus, a negative result in a vaccinated individual does not necessarily indicate susceptibility to VZV infection. A more sensitive test for vaccination-induced immunity is Varicella Zoster Virus Antibody Immunity Screen, ACIF.THIS TEST WAS PERFORMED AT:D[facility] [place] [phone] GARCES MD Blood Venous blood specimen / Unknown 09/27/2024 7:59 AM EDT 09/27/2024 7:59 AM EDT Ivy Jessica LAB BLOOD ORDERABLES Final R esult Performing Organization Address [facility]/ZIP Co de Phone Number [facility] [address] [place] [phone] * TSH (09/27/2024 7:59 AM EDT) Thyroid Stimulating Hormone 1.70 0.32 - 4.0 uIU/mL [facility] Comment:TSH 3rd Generation ( [facility]) Blood Venous blood specimen / Unknown 09/27/2024 7:59 AM EDT 09/27/2024 7:59 AM EDT Ivy Jamabetina LAB BLOOD ORDERABLES Final R esult Performing Organization Address [facility]/ZIP Co de Phone Number [facility] [address] [place] [phone] * T4, Free (09/27/2024 7:59 AM EDT) Free T4 (Free Thyroxine) 0.97 0.71 - 1.85 ng/dL [facility] Blood Venous blood specimen / Unknown 09/27/2024 7:59 AM EDT 09/27/2024 7:59 AM EDT Ivy Jessica LAB BLOOD ORDERABLES Final R esult Performing Organization Address City/[facility] Co de Phone Number [facility] [address] [place] [phone] * Hemoglobin A1c (09/27/2024 7:59 AM EDT) Hemoglobin A1c 5.2 <6.0 % [facility] Comment:Hemoglobin A1C Refer ence Range Adults: 4.8 - 6.0 % Non diabetic: < 6.0 % Goal: < 7.0 %Additional Action Suggested: > 8.0 %Note: Hemoglobin A1c results are invalid for patients with abnormal amounts of HbF. Blood transfusions may impact the HbA1c concentration in the patient sample. Estimated Average Glucose 103 mg/dL [facility] Comment:eAG = Estimated ave rage glucose which is %A1C expressed asaverage glucose, using the formula of the V0M-RzhmoukSnnbvlm Glucose study (ADAG), Diabetes Care, Vol.31,#8,Aug. 2007 Blood Venous blood specimen / Unknown 09/27/2024 7:59 AM EDT 09/27/2024 7:59 AM EDT Ivy Jessica LAB BLOOD ORDERABLES Final R esult Performing Organization Address [facility] Co de Phone Number [facility] [address] [place] [phone] * (ABNORMAL) Hepatic Function Panel (09/27/2024 7:59 AM EDT) Bilirubin, Total 0.3 0.0 - 1.0 mg/dL [facility] Bilirubin, Direct 0.1 0.0 - 0.5 mg/dL [facility] Aspartate Amino Transferase 23 5 - 31 U/L [facility] Alanine Aminotransferase 25 0 - 31 U/L [facility] Total Protein 8.1(H) 6.5 - 8.0 g/dL [facility] Albumin Level 4.5 3.5 - 5.0 g/dL [facility] Alkaline Phosphatase 69 39 - 117 U/L [facility] Blood Venous blood specimen / Unknown 09/27/2024 7:59 AM EDT 09/27/2024 7:59 AM EDT Ivy Jessica LAB BLOOD ORDERABLES Final R esult Performing Organization Address [facility] Co de Phone Number [facility] [address] [place] [phone] * (ABNORMAL) Lipid Panel, Standard (09/27/2024 7:59 AM EDT) Triglycerides 105 <150 mg/dL [facility] Comment:Desirable Triglyceri de: less than 150 mg/dLBorderline High Triglyceride 150-199 mg/dLHigh Triglyceride: 200-499 mg/dLVery High Triglyceride: greater than or equal to 5OO mg/dL Cholesterol 208(H) <200 mg/dL [facility] Comment:Desirable Cholestero l: less than 200 mg/dLBorderline High Cholesterol: 200-239 mg/dLHigh Cholesterol: greater than 239 mg/dL LDL Cholesterol Calculated 135(H) <100 mg/dL [facility] Comment:Desirable LDL: less than 100 mg/dLNear Optimal/Above Optimal LDL: 110- 129 mg/dLBorderline High LDL: 130-159 mg/dLHigh LDL: 160-189 mg/dLVery High LDL: greater than or equal to 190 mg/dL HDL Cholesterol 52 >40 mg/dL [facility] Comment:Desirable HDL: great er than 40 mg/dL Note: This HDL assay may give artificially low results in patients with liver disease. Blood Venous blood specimen / Unknown 09/27/2024 7:59 AM EDT 09/27/2024 7:59 AM EDT us Ivy Lopez DO LAB BLOOD ORDERABLES Final R esult [facility] [address] [place] [phone] * (ABNORMAL) Basic Metabolic Panel (09/27/2024 7:59 AM EDT) Sodium 140 135 - 145 mmol/L [facility] Potassium 3.9 3.3 - 5.1 mmol/L [facility] Chloride 110(H) 96 - 108 mmol/L [facility] Carbon Dioxide 24 22 - 29 mmol/L [facility] Anion Gap 10(L) 12 - 20 [facility] Urea Nitrogen (BUN) 14 9 - 16 mg/dL [facility] Creatinine, Serum 0.62 0.5 - 1.4 mg/dL [facility] Estimated Glomerular Filt Rate >60 [facility] Comment:Chronic Kidney Disea se: Estimated GFR < 60 mL/min/1.37v1Rcikyv Kidney Disease: Estimated GFR < 15 mL/min/1.73m2 Glucose 94 60 - 115 mg/dL [facility] Calcium 9.5 8.4 - 10.2 mg/dL [facility] Blood Venous blood specimen / Unknown 09/27/2024 7:59 AM EDT 09/27/2024 7:59 AM EDT Ivy Jessica NEGRON LAB BLOOD ORDERABLES Final R esult Performing Organization Address City/[facility]/ZIP Co de Phone Number [facility] [address] [place] [phone] * THINPREP PAP (02/25/2020 3:20 PM EST) Clinical Information: None given [facility] COMMENT SEE COMMENT [facility] Comment: EXPLANATORY NOTE: The Pap is a screening test for cervical cancer. It is not a diagnostic test and is subject to false negative and false positive results. It is most reliable when a satisfactory sample, regularly obtained, is submitted with relevant clinical findings and history, and when the Pap result is evaluated along with historic and current clinical information. Passenger Brakeman : SEE COMMENT [facility] Comment: HJP, CT(ASCP) CT screening location: [place] [address] Interpretation/R esult: Negative for intraepithelial lesion or malignancy. [facility] LMP: NONE [facility]IVEN [facility] Prev. BX: NONE [facility] Prev. PAP: NONE [facility] SOURCE: None given [facility] Statement Of Adequacy: SEE COMMENT [facility] Comment: Satisfactory for evaluation. Endocervical/transformation zone component present. Age and/or menstrual status not provided 02/25/2020 3:20 PM EST us Greta SANTAMARIA LAB PATHOLOGY ORDERABLES Final Result [facility] [address] from Last 3 Months or Most Recently Relevant to Health Maintenance Insurance [employer] [facility] Care Teams Beef Tagger Relationship Specialty Start Date End Date Ivy Lopez DO [address] [place] [address] PCP - General Family Medicine 07/08/24
== END ==
LOC: HO.CARD 08:50
PROVIDERS: PCP Internal Medicine Geriatric Medicine; Visit Provider Family Medicine
DX: R00.2 Palpitations (principal)
CPT/HCPCS: 93225; 93306

== ENCOUNTER → 2024-10-31 09:00 | Outpatient (BNV) | payer MEDICAID, SELFPAY | PROVIDERS: PCP Internal Medicine Geriatric Medicine; Visit Provider Internal Medicine Cardiovascular Disease | DX: R00.2 Palpitations (principal) | CPT/HCPCS: 93227; 93306 ==

== ENCOUNTER 2024-11-11 13:14 | Outpatient (REF) | payer MEDICAID, SELFPAY ==
--- NOTE | ~2024-11-11 | US_ITS ---
EXAMINATION: US RETROPERITONEAL LIMITED (RENAL ONLY) CLINICAL INFORMATION: History of renal calculi. COMPARISON: No prior ultrasound. Correlation made with CT abdomen and pelvis 04/28/2020. TECHNIQUE: Real-time imaging of the kidneys. FINDINGS: RIGHT KIDNEY: 11.5 x 4.5 x 5.4 cm (SAG x AP x TRV). The kidney is normal in size, contour, and echogenicity. Renal cortical thickness is normal. No calculi or suspicious focal parenchymal lesions. No hydronephrosis. There is an upper pole 1.1 x 1.0 x 1.1 cm simple cyst. LEFT KIDNEY: 12.6 x 5.5 x 5.4 cm (SAG x AP x TRV). The kidney is normal in size, contour, and echogenicity. Renal cortical thickness is normal. No focal suspicious parenchymal lesions. No hydronephrosis. There is a lower pole nonobstructing calculus measuring 0.4 x 0.5 x 0.5 cm. US/US renal BI IMPRESSION: 1. Right upper pole 1.1 cm simple cyst. 2. Left lower pole 0.5 cm nonobstructing calculus. Electronically signed by: Roddy Lawson MD 11/11/2024 01:59 PM EDT
--- OUTSIDE RECORDS SUMMARY | 2024-11-11 14:05 | XMS_ITS | Clinical Summary ---
Author Organization [employer] Address [address] [facility] [address] [place] [address] Care Team Providers Care Cementer Machine Joiner Name Role Phone Ivy Lopez DO Primary Care Provider + [phone] Allergies No known active allergies Medications metFORMIN [...] Encounters Date Type Department Care Team Description 11/11/2024 Orders Only [facility] [address] [place] [phone] Ivy Lopez DO 10/07/2024 Telephone [facility] [address] [place] [phone] Ivy Lopez DO 09/26/2024 10:30 AM EDT Office Visit [facility] [address] [place] [phone] Ivy Lopez DO Routine history and physical examination of adult (Primary Dx); PCOS (polycystic ovarian syndrome); Dermatitis; History of nephrolithiasis; Palpitations; Diminished night vision; BMI 28.0-28.9,adult 09/26/2024 Travel 09/22/2024 Telephone [facility] [address] [place] [address] Ivy Lopez, DO Chart Prep 09/17/2024 Patient Outreach [facility] [address] [place] [phone] Ivy Lopez, DO Pre-visit Planning ((Unable to reach for PVP screening, LVM) to be completed in office ) 09/08/2024 3:40 PM EDT Office Visit [facility] [address] [place] [phone] Name, MD Darin Dyshidrotic eczema (Primary Dx) [...] Description 01/09/2025 10:30 AM EDT Office Visit [facility] [address] [place] [address] Kelsi Ruiz, OD [address] [place] [address] Health Maintenance Due Date Last Done Comments [...] Procedure Name Priority Date/Time Associated Diagnosis Comments US RENAL COMPLETE Routine 11/11/2024 1:3 9 PM EDT T-SPOT(R).TB Routine 09/29/2024 10:47 AM EDT Routine [...] Recently Relevant to Health Maintenance Results * US Renal Complete (11/11/2024 1:39 PM EDT) Anatomical Region Laterality Modality Kidney Ultrasound 11/11/2024 1:39 PM EDT Narrative 11/11/2024 2:01 PM EDT [address] [address] Ultrasound Report Signed Patient: Ani Quintanilla MR#: [id number] : 1990 Acct:[id number] Age/Sex: 34 / F ADM Date: 11/11/24 Loc: HO.US Attending Dr: Ivy Lopez DO Ordering Physician: Ivy Lopez DO Date of Service: 11/11/24 Procedure(s): US renal BI Accession Number(s): [id number] cc: Ivy Lopez DO; Name,Darin LEPE EXAMINATION: US RETROPERITONEAL LIMITED (RENAL ONLY) CLINICAL INFORMATION: History of renal calculi. COMPARISON: No prior ultrasound. Correlation made with CT abdomen and pelvis 04/28/2020. TECHNIQUE: Real-time imaging of the kidneys. FINDINGS: RIGHT KIDNEY: 11.5 x 4.5 x 5.4 cm (SAG x AP x TRV). The kidney is normal in size, contour, and echogenicity. Renal cortical thickness is normal. No calculi or suspicious focal parenchymal lesions. No hydronephrosis. There is an upper pole 1.1 x 1.0 x 1.1 cm simple cyst. LEFT KIDNEY: 12.6 x 5.5 x 5.4 cm (SAG x AP x TRV). The kidney is normal in size, contour, and echogenicity. Renal cortical thickness is normal. No focal suspicious parenchymal lesions. No hydronephrosis. There is a lower pole nonobstructing calculus measuring 0.4 x 0.5 x 0.5 cm. US/US renal BI IMPRESSION: 1. Right upper pole 1.1 cm simple cyst. 2. Left lower pole 0.5 cm nonobstructing calculus. Electronically signed by: Roddy Lawson MD 11/11/2024 01:59 PM EDT Dictated By: Roddy Lawson MD Signed By: <Electronically signed by Roddy Lawson MD in OV> 11/11/24 1359 DD/ 1339 TD/TT: 11/11/24 1345 Liner Reroll Tender: Procedure Note Donotuseinterpreter, Image - 11/11/2024 [place] [address] Ultrasound Report Signed Patient: Ani Quintanilla MR#: [id number] : 1990Acct:[id number] Age/Sex: 34 / FADM Date: 11/11/24 Loc: HO.US Attending Dr: Ivy Lopez DO Ordering Physician: Ivy Lopez DO Date of Service: 11/11/24 Procedure(s): US renal BI Accession Number(s): [id number] cc: Ivy Lopez DO; Name,Darin LEPE EXAMINATION: US RETROPERITONEAL LIMITED (RENAL ONLY) CLINICAL INFORMATION: History of renal calculi. COMPARISON: No prior ultrasound. Correlation made with CT abdomen and pelvis 04/28/2020. TECHNIQUE: Real-time imaging of the kidneys. FINDINGS: RIGHT KIDNEY: 11.5 x 4.5 x 5.4 cm (SAG x AP x TRV). The kidney is normal in size, contour, and echogenicity. Renal cortical thickness is normal. No calculi or suspicious focal parenchymal lesions. No hydronephrosis. There is an upper pole 1.1 x 1.0 x 1.1 cm simple cyst. LEFT KIDNEY: 12.6 x 5.5 x 5.4 cm (SAG x AP x TRV). The kidney is normal in size, contour, and echogenicity. Renal cortical thickness is normal. No focal suspicious parenchymal lesions. No hydronephrosis. There is a lower pole nonobstructing calculus measuring 0.4 x 0.5 x 0.5 cm. US/US renal BI IMPRESSION: 1. Right upper pole 1.1 cm simple cyst. 2. Left lower pole 0.5 cm nonobstructing calculus. Electronically signed by: Roddy Lawson MD 11/11/2024 01:59 PM EDT RP Dictated By: Roddy Lawson MD Signed By: <Electronically signed by Roddy Lawson MD in OV> 11/11/24 1359 DD/ 1339 TD/TT: 11/11/24 1345 Liner Reroll Tender: us Ivy Yunbetina DO IMG US PROCEDURES Final Resu lt * T-SPOT??.TB (09/29/2024 10:47 AM EDT) T Spot TB Negative Negative [facility] Comment:A negative test resu lt [...] as aquantitative test. TS PANEL A 0 [facility] TS PANEL B 0 [facility] Negative Control Passed [facility] Positive Control Passed [facility] Comment:For additional infor emily, please refer tohttp://education.[employer] Shop/faq/CMD579(This link is being provided for informational/educational purposes only.)THIS TEST WAS PERFORMED AT:[facility] [id number] [place] [id number] HARTLEY MD,PHD 09/29/2024 10:4 7 AM EDT 09/29/2024 10:47 AM EDT Ivy Lopez DO LAB BLOOD ORDERABLES Final R esult Performing Organization Address City/[facility]/ZIP Co de Phone Number [facility] [address] [place] [phone] * (ABNORMAL) Vitamin D, 25-Hydroxy, Total, Immunoassay (09/27/2024 7:59 AM EDT) Vitamin D 25-OH Total 22.2(L) >30 ng/mL [facility] Comment: Health Based Reference Values*< 20 ng/mL Xiaaemgat85-13 ng/mL Insufficient> 30 ng/mL Sufficient*Yury WEINSTEIN. N [...] ORDERABLES Final R esult Performing Organization Address City/[facility]/ZIP Co de Phone Number [facility] [address] [place] [address] [phone] * (ABNORMAL) Measles, Mumps, and Rubella (MMR) Antibodies??(IgG) Panel, Immune Status (09/27/2024 7:59 AM EDT) Mumps Virus IgG Antibody <9.00(A) AU/mL [facility] Comment:AU/mL Interpretatio n------- <9.00 Not consistent with immunity9.00-10.99 Equivocal>10.99 Consistent with immunityThe presence of mumps IgG antibody suggests immunizationor past or current infection with mumps virus. Rubella IgG Antibody <0.90(A) Index [facility] Comment:Index Interpretation ----- <0.90 Not consistent with immunity 0.90-0.99 Equivocal > or = 1.00 Consistent with immunityThe presence of rubella IgG antibody suggestsimmunization or past or current infection withrubella virus.THIS TEST WAS PERFORMED AT:[facility] [place] [id number] GARCES MD [place] IgG (Measles) 15.00(A) AU/mL [facility] Comment:AU/mL Interpretation ----- <13.50 Not consistent with opykvgri48.50-16.49 Equivocal>16.49 Consistent with immunityThe presence of measles IgG suggests immunization orpast or current infection with measles virus.For additional information, please refer tohttp://education.[employer]ura!/faq/FNU802(This link is being provided for informational/educational purposes only.) Blood Venous blood specimen / Unknown 09/27/2024 7:59 AM EDT 09/27/2024 7:59 AM EDT Ivy Lopez DO LAB BLOOD ORDERABLES Final R esult [facility] [address] [place] [phone] * Hepatitis C Antibody with Reflex to HCV, RNA, Quantitative, Real-Time PCR (09/27/2024 7:59 AM EDT) Hepatitis C Antibody Nonreactive Nonreactive [facility] Comment:Antibodies to HCV no t detected; does not exclude early acuteHCV infection. Blood Venous blood specimen / Unknown 09/27/2024 7:59 AM EDT 09/27/2024 7:59 AM EDT Ivy Lopez DO LAB BLOOD ORDERABLES Final R esult Performing Organization Address [facility]/ZIP Co de Phone Number [facility] [address] [place] [phone] * Hepatitis A Antibody, Total (09/27/2024 7:59 AM EDT) Hepatitis A Antibody IgG Nonreactive Nonreactive [facility] Blood Venous blood specimen / Unknown 09/27/2024 7:59 AM EDT 09/27/2024 7:59 AM EDT Ivy Lopez DO LAB BLOOD ORDERABLES Final R esult Performing Organization Address [facility]/ZIP Co de Phone Number [facility] [address] [place] [phone] * Hepatitis B surface antigen, EIA (09/27/2024 7:59 AM EDT) Hepatitis B Surface Ag Negative Negative [facility] Blood Venous blood specimen / Unknown 09/27/2024 7:59 AM EDT 09/27/2024 7:59 AM EDT Ivy Lopez DO LAB BLOOD ORDERABLES Final R esult Performing Organization Address City/[facility]/ZIP Co de Phone Number [facility] [address] [place] [phone] * Hepatitis B Core Antibody, Total (09/27/2024 7:59 AM EDT) Pathologist [facility] Hepatitis B Core Antibody Nonreactive Nonreactive [facility] Blood Venous blood specimen / Unknown 09/27/2024 7:59 AM EDT 09/27/2024 7:59 AM EDT Ivy Jessica DO LAB BLOOD ORDERABLES Final R esult Performing Organization Address [facility] Co de Phone Number [facility] [address] [place] [phone] * RPR (Monitor) with Reflex to??Titer (09/27/2024 7:59 AM EDT) Pathologist [facility] RPR (Monitor) w/Refl Titer NON-REACTI VE NON-REACT ERNIE [facility] Comment:THIS TEST WAS PERFOR MED AT:[facility] [place] [id number] GARCES MD Rapid Plasma Reagin Ab Titer TNP [facility] Blood Venous blood specimen / Unknown 09/27/2024 7:59 AM EDT 09/27/2024 7:59 AM EDT Ivy Lopez DO LAB BLOOD ORDERABLES Final R esult Performing Organization Address [facility] Co de Phone Number [facility] [address] [place] [phone] * HIV-1/2 Antigen and Antibodies, Fourth Generation, with Reflexes (09/27/2024 7:59 AM EDT) Pathologist [facility] HIV AB/AG Nonreactive Nonreactive [facility] Comment:HIV-1 p24 Ag and/or HIV-1/HIV-2 Ab not detected.A test result that is nonreactive does not exclude thepossibility of exposure to or infection with HIV-1 and/orHIV-2. Nonreactive results in this assay for individualswith prior exposure to HIV-1 and/or HIV-2 may be due toantigen and antibody levels that are below the limit ofdetection of this assay.The [employer]BaseKit HIV Ag/Ab Combo assay result andsupplemental assay results should be interpreted inconjunction with the patient's clinical presentation,history and other laboratory results. If the results areinconsistent with clinical evidence, additional testing issuggested to confirm the result. Blood Venous blood specimen / Unknown 09/27/2024 7:59 AM EDT 09/27/2024 7:59 AM EDT Ivy Lopez LAB BLOOD ORDERABLES Final R esult Performing Organization Address [facility]/ZIP Co de Phone Number [facility] [address] [place] [phone] * Hepatitis B Surface Antibody, Qualitative (09/27/2024 7:59 AM EDT) Pathologist [facility] ~Hepatitis B Surface Antibody NONREACTIVE Nonreactive [facility] Comment:Nonreactive: < 8.00 mIU/mL Blood Venous blood specimen / Unknown 09/27/2024 7:59 AM EDT 09/27/2024 7:59 AM EDT Ivy Lopez DO LAB BLOOD ORDERABLES Final R esult Performing Organization Address City/[facility]/ZIP Co de Phone Number [facility] [address] [place] [phone] * (ABNORMAL) CBC (09/27/2024 7:59 AM EDT) Pathologist [facility] White Blood Count 8.6 4.8 - 10.8 X10*3/uL [facility] Red Blood Count 4.09(L) 4.20 - 5.50 X10*6/uL [facility] Hemoglobin 11.6(L) 12.0 - 16.0 g/dl [facility] Hematocrit 35.7(L) 37.0 - 47.0 % [facility] Mean Corpuscular Volume 87.3 80.0 - 98.0 fL [facility] Mean Corpuscular Hemoglobin 28.4 27.0 - 33.0 pg [facility] Mean Corpuscular HGB Conc 32.5 31.0 - 35.0 g/dl [facility] Red Cell Distribution Width 12.6 11.0 - 16.0 % [facility] Platelet Count 381 160 - 400 X10*3/uL [facility] Mean Platelet Volume 9.6 9.4 - 12.3 fL [facility] NRBC Pct Auto 0.0 0.0 - 0.2 /100WBC [facility] NRBC Abs Auto 0.000 0.0 - 0.012 X10*3/uL [facility] Blood Venous blood specimen / Unknown 09/27/2024 7:59 AM EDT 09/27/2024 7:59 AM EDT us Ivy Lopez DO LAB BLOOD ORDERABLES Final R esult [facility] [address] [place] [address] [phone] * (ABNORMAL) Varicella zoster antibody, IgG (09/27/2024 7:59 AM EDT) Varicella IgG Antibody <1.00(A) S/CO [facility] Comment:Signal to Cut-off S/ CO [...] Antibody Immunity Screen, ACIF.THIS TEST WAS PERFORMED AT:[facility] [address] [phone] GARCES MD Blood Venous blood specimen / Unknown 09/27/2024 7:59 AM EDT 09/27/2024 7:59 AM EDT Ivy Lopez DO LAB BLOOD ORDERABLES Final R esult Performing Organization Address [facility]/ZIP Co de Phone Number [facility] [address] [place] [phone] * TSH (09/27/2024 7:59 AM EDT) Thyroid Stimulating Hormone 1.70 0.32 - 4.0 uIU/mL [facility] Comment:TSH 3rd Generation ( [facility]) Blood Venous blood specimen / Unknown 09/27/2024 7:59 AM EDT 09/27/2024 7:59 AM EDT Ivy Lopez DO LAB BLOOD ORDERABLES Final R esult Performing Organization Address [facility] Co de Phone Number [facility] [address] [place] [phone] * T4, Free (09/27/2024 7:59 AM EDT) Free T4 (Free Thyroxine) 0.97 0.71 - 1.85 ng/dL [facility] Blood Venous blood specimen / Unknown 09/27/2024 7:59 AM EDT 09/27/2024 7:59 AM EDT Ivy Lopez DO LAB BLOOD ORDERABLES Final R esult Performing Organization Address [facility] Co de Phone Number [facility] [address] [place] [phone] * Hemoglobin A1c (09/27/2024 7:59 AM EDT) Hemoglobin A1c 5.2 <6.0 % [facility] Comment:Hemoglobin A1C Refer ence Range Adults: 4.8 - 6.0 % Non diabetic: < 6.0 % Goal: < 7.0 %Additional Action Suggested: > 8.0 %Note: Hemoglobin A1c results are invalid for patients with abnormal amounts of HbF. Blood transfusions may impact the HbA1c concentration in the patient sample. Estimated Average Glucose 103 mg/dL [facility] Comment:eAG = Estimated ave rage glucose which is %A1C expressed asaverage glucose, using the formula of the M4U-NpykrwoEfnmlwz Glucose study (ADAG), Diabetes Care, Vol.31,#8,2007 Blood Venous blood specimen / Unknown 09/27/2024 7:59 AM EDT 09/27/2024 7:59 AM EDT us Ivy Lopez DO LAB BLOOD ORDERABLES Final R esult [facility] [address] [place] [phone] * (ABNORMAL) Hepatic Function Panel (09/27/2024 7:59 AM EDT) Bilirubin, Total 0.3 0.0 - 1.0 mg/dL [facility] Bilirubin, Direct 0.1 0.0 - 0.5 mg/dL [facility] Aspartate Amino Transferase 23 5 - 31 U/L [facility] Alanine Aminotransferase 25 0 - 31 U/L [facility] Total Protein 8.1(H) 6.5 - 8.0 g/dL [facility] Albumin Level 4.5 3.5 - 5.0 g/dL [facility] Alkaline Phosphatase 69 39 - 117 U/L [facility] Blood Venous blood specimen / Unknown 09/27/2024 7:59 AM EDT 09/27/2024 7:59 AM EDT us Ivy Lopez DO LAB BLOOD ORDERABLES Final R esult Performing Organization Address City/[facility]/ZIP Co de Phone Number [facility] [address] [place] [phone] * (ABNORMAL) Lipid Panel, Standard (09/27/2024 7:59 AM EDT) Triglycerides 105 <150 mg/dL [facility] Comment:Desirable Triglyceri de: less than 150 mg/dLBorderline High Triglyceride 150-199 mg/dLHigh Triglyceride: 200-499 mg/dLVery High Triglyceride: greater than or equal to 5OO mg/dL Cholesterol 208(H) <200 mg/dL [facility] Comment:Desirable Cholestero l: less than 200 mg/dLBorderline High Cholesterol: 200-239 mg/dLHigh Cholesterol: greater than 239 mg/dL LDL Cholesterol Calculated 135(H) <100 mg/dL [facility] Comment:Desirable LDL: less than 100 mg/dLNear Optimal/Above Optimal LDL: 110- 129 mg/dLBorderline High LDL: 130-159 mg/dLHigh LDL: 160-189 mg/dLVery High LDL: greater than or equal to 190 mg/dL HDL Cholesterol 52 >40 mg/dL [facility] Comment:Desirable HDL: great er than 40 mg/dL Note: This HDL assay may give artificially low results in patients with liver disease. Blood Venous blood specimen / Unknown 09/27/2024 7:59 AM EDT 09/27/2024 7:59 AM EDT Ivy Merrillmiles LAB BLOOD ORDERABLES Final R esult [facility] [address] [place] [phone] * (ABNORMAL) Basic Metabolic Panel (09/27/2024 7:59 AM EDT) Sodium 140 135 - 145 mmol/L [facility] Potassium 3.9 3.3 - 5.1 mmol/L [facility] Chloride 110(H) 96 - 108 mmol/L [facility] Carbon Dioxide 24 22 - 29 mmol/L [facility] Anion Gap 10(L) 12 - 20 [facility] Urea Nitrogen (BUN) 14 9 - 16 mg/dL [facility] Creatinine, Serum 0.62 0.5 - 1.4 mg/dL [facility] Estimated Glomerular Filt Rate >60 [facility] Comment:Chronic Kidney Disea se: Estimated GFR < 60 mL/min/1.49g1Worlnx Kidney Disease: Estimated GFR < 15 mL/min/1.73m2 Glucose 94 60 - 115 mg/dL [facility] Calcium 9.5 8.4 - 10.2 mg/dL [facility] Blood Venous blood specimen / Unknown 09/27/2024 7:59 AM EDT 09/27/2024 7:59 AM EDT Ivy Lopez DO LAB BLOOD ORDERABLES Final R esult [facility] [address] [place] [phone] [phone] * THINPREP PAP (02/25/2020 3:20 PM [...] along with historic and current clinical information. Material Control Associate : SEE COMMENT [facility] Comment: HJP, CT(ASCP) CT screening location: [place] [address] Interpretation/R esult: Negative for intraepithelial lesion or malignancy. [facility] LMP: NONE [facility]IVEN [facility] Prev. BX: NONE [facility]IVEN [facility] Prev. PAP: NONE [facility]IVEN [facility] SOURCE: None given [facility] Statement Of Adequacy: SEE COMMENT [facility] Comment: Satisfactory for evaluation. Endocervical/transformation zone component present. Age and/or menstrual status not provided 02/25/2020 3:20 PM EST us Greta Monteiro CNM LAB PATHOLOGY ORDERABLES Final Result [facility] [address] from Last 3 Months or Most Recently Relevant to Health Maintenance Insurance [facility] Care Teams Cementer Machine Joiner Relationship Specialty Start Date End Date Ivy Lopez DO [address] [place] [address] PCP - General Family Medicine 07/08/24
--- OUTSIDE RECORDS SUMMARY | 2024-11-11 14:05 | XMS_ITS | Encounter Summary ---
Author Organization [employer] Address [address] [place] [address] [address] [place] [address] Care Team Providers Care Network Systems Engineer Name Role Phone Name, Darin LEPE Primary Care Provider [phone] Ivy Lopez DO Primary Care Provider + [phone] Encounter Details Date Type Department Care Team (Late st Contact Info) Description 03/03/2022 Orders Only [facility] [address] [place] [address] Lidia Larkin, RN Social History Tobacco Use Types Packs/Day Years Used Date Smoking Tobacco: Never Assessed Comments Unknown Sex and Gender Information Value Date Recorded Sex Assigned at Female 01/16/2022 10:19 AM EDT Legal Sex Female 10:19 AM EDT Gender Identity Female 01/16/2022 10:19 AM EDT Sexual Orientation Choose not to disclose 2021 10:19 AM EDT documented as of this encounter Plan of Treatment Upcoming Encounters Date Type Department Care Team (Late st Contact Info) Description 01/09/2025 10:30 AM EDT Office Visit [facility]OMETRY [address] [place] [address] Kelsi Ruiz, OD [address] [place] [address] documented as of this encounter Visit Diagnoses Not on filedocumented in this encounter Care Teams Network Systems Engineer Relationship Specialty Start Date End Date Name, MD Darin [address] [place] [address] PCP - General Family Medicine 11/27/16 03/21/23 Ivy Lopez DO [address] [place] [id number] PCP - General Family Medicine 07/08/24 documented as of this encounter
--- OUTSIDE RECORDS SUMMARY | 2024-11-11 14:05 | XMS_ITS | Clinical Summary ---
Author Organization [facility] Address [address] [place] [address] Care Team Providers Care Crystal Flat Grinder Name Role Phone Unavailable Primary Care Provider [...]
== END 2024-11-11 13:15 | disposition home or self-care (01) ==
LOC: HO.US 13:14
PROVIDERS: PCP Internal Medicine Geriatric Medicine; Visit Provider Family Medicine
DX: Z87.442 Personal history of urinary calculi (principal)
CPT/HCPCS: 76775

== ENCOUNTER → 2024-11-11 13:39 | Outpatient (BNV) | payer MEDICAID, SELFPAY | PROVIDERS: PCP Internal Medicine Geriatric Medicine; Visit Provider Radiology Diagnostic Radiology | DX: N20.0 Calculus of kidney (principal); N28.1 Cyst of kidney, acquired | CPT/HCPCS: 76775 ==